=== PATIENT | male | born 1985 ===

== ENCOUNTER 2021-11-26 18:11 | Emergency (ER) | payer BC ==
[2021-11-26] MEDS ORDERED: Ketorolac 30 MG/ML SDV IVPUSH ONE (19:28)
[2021-11-26] MEDS ORDERED: HYDROmorphone 1 MG/ML Syringe IVPUSH ONE (19:29)
== END 2021-11-26 20:45 | disposition home or self-care (01) ==
LOC: MW.ED 18:11
DX: M54.50 Low back pain, unspecified (principal)
CPT/HCPCS: 96374; 96375; 99283; J1170; J1885